=== PATIENT | female | born 1990 | race Caucasian/White ===

== ENCOUNTER 2021-12-14 22:58 | Emergency (ER) | payer OTHER ==
[2021-12-14 23:35] LABS: BASOPHIL 0.8 % (0-2); EOSINOPHIL 0.8 % (0-5); HGB 12.6 g/dl (12.5-16.0); LYMPHOCYTE 16.8 % (15-48); MCH 30.5 pg (25.0-31.0); MCHC 34.1 g/dL (32.0-36.0); MCV 89.6 fL (78.0-100.0); MONOCYTE 4.4 % (0-12); MPV 12.5 fL (6.0-9.5); NEUTROPHIL 76.6 % (41-80); NRBC 0; PLT 217 K/uL (150-400); RBC 4.13 M/uL (4.20-5.40); RDW 12.5 % (11.5-14.0); WBC 10.6 K/uL (4.0-10.5)
[2021-12-14 23:44] LABS: ALBUMIN 3.9 g/dL (3.4-5.0); BUN/CREAT RATIO (CALC) 14.3 RATIO; CREATININE 0.77 mg/dL (0.51-0.95); GLOBULIN (CALCULATION) 2.8 g/dL; POTASSIUM 3.4 mmol/L (3.5-5.1); TOTAL PROTEIN 6.7 g/dL (6.4-8.2)
[2021-12-15] MEDS ORDERED: FLEXERIL5 MG PO (02:37)
== END 2021-12-15 02:49 | disposition home or self-care (01) ==
LOC: FER 22:58
PROVIDERS: Emergency Medicine
DX: S13.9XXA Sprain of joints and ligaments of unspecified parts of neck, initial encounter (principal); M79.652 Pain in left thigh; M79.661 Pain in right lower leg; Z88.0 Allergy status to penicillin; V49.40XA Driver injured in collision with unspecified motor vehicles in traffic accident, initial encounter; Z28.310 Unvaccinated for COVID-19
CPT/HCPCS: 36415; 70450; 71260; 72125; 72128; 72131; 73552; 73560; 73590; 80053; 83690; 84703; 85025; J1170; Q9967